=== PATIENT | male | born 1980 | race Caucasian/White ===

== ENCOUNTER 2021-08-21 19:33 | Emergency (ER) | payer OTHER, SELFPAY ==
[2021-08-21 19:34] VITALS: BP 216/100; PULSE 100; RESP 18; TEMP 36.6; O2SAT 99; BMI 61.0
--- NOTE | 2021-08-21 19:52 | EKG12_ITS ---
Test Reason : CP Blood Pressure : / mmHG Vent. Rate : 096 BPM Atrial Rate : 096 BPM P-R Int : 150 ms QRS Dur : 110 ms QT Int : 348 ms P-R-T Axes : 029 001 017 degrees QTc Int : 439 ms Normal sinus rhythm Septal infarct , age undetermined , cannot be excluded Abnormal ECG Confirmed by EMEKA SEYMOUR, JOHN ([id number]), medical transcription editor SHABANA CORTEZ ([id number]) on 08/23/2021 9:44:15 AM Referred By: RU Confirmed By:JOHN HENDRICKSON MD
--- NOTE | 2021-08-21 19:54 | ED.VIS.CHEST ---
HPI History of Present Illness Chief Complaint: Chest Pain Informant: patient Onset/Context/Timing Onset: Weeks (1.5) Activity at onset: gradual Timing: Continuous Quality: Positive for Tightness Location: Left Chest Worsened By: Nothing Relieved By: Nothing Associated Symptoms: Positive for Cough and Palpitations; Negative for Nausea, Vomiting, Diaphoresis, Dyspnea, Fever, Lightheadedness and Acid Reflux Narrative Narrative: Patient presents with chest pain that has been intermittent over the past week and a half but has become more constant today. Patient describes it as a burning and tightness. Patient states it is over his left upper chest. Patient denies any radiation of the pain. Patient states nothing makes it better nothing makes it worse. Patient states he noticed his heart rate was higher today than usual. Patient states his blood pressure was also elevated today. Patient admits to a recent cough. Patient denies any shortness of breath. Patient denies any nausea or vomiting. Patient denies any diaphoresis. CVD Risk Factors: Negative for Hypertension, Diabetes, Hypercholesterolemia, Family History 1' </=55 and Smoking PE Risk Factors: Negative for Recent Travel/Surgery, Recent Immobilization, Prior DVT or PE, Cancer and OCP + Smoking + >/=35 PFSH PFSH Medical History no medical history no medical history Allergy/AdvReac Type Severity Reaction Status Date / Time Penicillins Allergy PT UNSURE Verified 08/21/21 19:37 OF REACTION Surgical History Hx of tonsillectomy Social History Smoking Status: Light Smoker (<10/day) ROS ROS ED Constitutional Constitutional ED: Denies chills or fever(s) Eyes Eyes: Denies blurry vision or change in vision ENT ENT ED: Denies rhinorrhea or sore throat Cardiovascular Cardiovascular: Reports chest pain and palpitations Respiratory/Chest Respiratory/Chest: Reports cough; Denies dyspnea Gastrointestinal Gastrointestinal: Denies abdominal pain, nausea or vomiting Genitourinary Genitourinary ED: Denies dysuria or hematuria Musculoskeletal Musculoskeletal: Denies back pain or neck pain Integumentary Denies abscess or rash Neurologic Neurologic: Denies headache(s) or weakness Allergic/Immunologic Allergic/Immunologic ED: Denies mouth swelling or urticaria EXAM Physical Exam Const Vital Signs: 08/21/21 19:34 08/21/21 19:54 08/21/21 19:55 Temperature 97.9 F Temperature Source Temporal Pulse Rate 100 Respiratory Rate 18 Respiratory Effort Normal Non-Labored Blood Pressure 216/100 H Blood Pressure Mean 138 Pulse Ox 99 Oxygen Delivery Method Room Air Room Air 08/21/21 21:02 Temperature Temperature Source Pulse Rate 87 Respiratory Rate 14 Respiratory Effort Blood Pressure 126/74 H Blood Pressure Mean 91 Pulse Ox 94 Oxygen Delivery Method Room Air Positive well nourished, well developed and obese General Appearance ED: well developed Nutritional Appearance: obese HEENT normocephalic and atraumatic Eyes PERRL and EOMs intact bilaterally Neck supple and no JVD Chest Wall palpation of chest normal Resp normal respiratory effort and clear to auscultation bilaterally Effort and Inspection: Negative for respiratory distress Cardio regular rate, regular rhythm and no murmurs GI normal to inspection, nondistended, normoactive bowel sounds, soft to palpation, non-tender and non-distended Extremity normal to inspection General Extremety ED: Negative for edema or tenderness General Extremity: Negative for edema Neuro oriented x3, CN's II-XII intact bilaterally and no sensory deficits noted Sensorium / Orientation: awake and alert Motor Exam: strength 5/5 throughout Psych mental status grossly normal Heart Score History: Slightly/Non-Suspicious ECG: Normal Age: </= 45 years Risk Factors: No Risk Factors Score: 0 MDM MDM MDM Narrative Medical decision making narrative: EKG was obtained. On my interpretation, it showed a normal sinus rhythm with a rate of 96. GA interval, QRS interval, and QTc intervals were all normal. [place] was normal. There are no acute ST or T wave changes. Portable 1 view chest x-ray was obtained. On my interpretation, lung parnell are clear. There is normal cardiac silhouette. Bony thorax is normal. There is no acute process noted. Radiologist also interpreted the x-ray and agrees. CBC was within normal limits. Basic metabolic profile was normal. Initial high-sensitivity troponin was normal at 6. Patient's blood pressure improved without any medications and remained stable during his emergency department course. 2-hour repeat high-sensitivity troponin was obtained and was normal at 7. Patient was advised of his findings. Patient was instructed to monitor his blood pressures. Patient was instructed to follow-up with his primary care physician as scheduled. Patient and spouse understood and were agreeable with the plan. All questions were answered. Lab Data Attestation: I reviewed the patient's lab results. Labs: Laboratory Results - last 24 hr 08/21/21 08/21/21 08/21/21 19:50 19:50 21:53 WBC 10.1 RBC 5.12 Hgb 15.4 Hct 45.6 MCV 89.1 MCH 30.1 MCHC 33.8 RDW Std Deviation 42.4 RDW Coeff of Jimmy 12.9 Plt Count 262 MPV 9.3 Immature Gran % (Auto) 0.300 Neut % (Auto) 55.1 Lymph % (Auto) 33.1 [place] % (Auto) 9.8 Eos % (Auto) 1.0 Baso % (Auto) 0.7 Absolute Neuts (auto) 5.6 Absolute Lymphs (auto) 3.35 Nucleated RBC % 0 Sodium 140 Potassium 3.8 Chloride 106 Carbon Dioxide 28.0 Anion Gap 6 BUN 13 Creatinine 1.05 Estim Creat Clear Calc 102.65 Est GFR (MDRD) Af Amer 101 Est GFR (MDRD) Non-Af 83 BUN/Creatinine Ratio 12.4 Glucose 109 H Calcium 9.3 Troponin I High Sens 6 7 Radiography Diagnostic Testing: Clinical Impression(s) from Imaging Studies Chest X-Ray 08/21/21 20:00 IMPRESSION: There are no acute findings. Electronically Signed: Rodolfo Milian MD at 20:29 EST , Service support , EKG Initial EKG: Attestation: I personally reviewed and interpreted this EKG as follows: Interpretation: Sinus Rhythm (96) and No Acute Injury Pattern Prior EKG tracings: not available for review Discharge Plan Triage Chief Complaint: Chest Pain ED Provider: Sloan Nelson Dx/Rx/DC Orders Clinical Impression: Chest pain of uncertain etiology Instructions: ED Chest Pain, Uncertain Cause Primary Care Provider: Catracho Quinones Referrals: Catracho Quinones DO [Primary Care Provider] - Keep Esther appointment Disposition Disposition: Home, Self Care
[2021-08-21 19:57] LABS: Absolute Lymphocyte Count 3.35 X10^3/uL (0.83-4.51); Absolute Neutrophil Count 5.6 X10^3/uL (2.0-7.7); Basophil# 0.07 X10^3/uL; Basophil% 0.7 % (0-1); Hematocrit 45.6 % (40-54); Hemoglobin 15.4 g/dL (13.0-16.5); Lymphocyte # 3.35 X10^3/ul (0.83-4.51); Lymphocyte % 33.1 % (19-41); Mean Corp Hgb Conc 33.8 g/dL (32-36); Mean Corpuscular Hgb 30.1 pg (27.0-32.0); Mean Corpuscular Volume 89.1 fL (80-94); Mean Platelet Vol. 9.3 fl (6.2-12.0); Monocyte# 0.99 X10^3/uL; Monocyte% 9.8 % (0-10); NRBC Flagged by Analyzer 0 % (0-5); Neutrophil # 5.58 X10^3/uL (2.7-7.7); Neutrophil % 55.1 % (47-70); Platelet Count 262 K/mm3 (150-450); RBC Distribution Width CV 12.9 % (11.6-14.6); RBC Distribution Width SD 42.4 fl (35.1-43.9); Red Blood Count 5.12 M/mm3 (4.6-6.2); White Blood Count 10.1 K/mm3 (4.4-11.0)
[2021-08-21] MEDS: Aspirin 81 MG TAB.CHEW 324 MG PO (20:00)
--- NOTE | 2021-08-21 20:00 | RAD_ITS ---
STUDY: X-RAY CHEST REASON FOR EXAM: Male, 41 years old. CHEST PAIN chest pain TECHNIQUE: XR Chest 1 View COMPARISON: None FINDINGS: There is no demonstrated pleural abnormality. Normal size heart. Normal mediastinum and charline. Normal visualized pulmonary arteries. Normal visualized aortic arch and descending thoracic aorta. Normal visualized thoracic spine. Normal visualized ribs, clavicles, and shoulders. There is no demonstrated abnormality of the visualized soft tissue structures of the upper abdomen. RAD/Chest 1 View (Portable) IMPRESSION: There are no acute findings. Electronically Signed: Rodoflo Milian MD at 20:29 EST , Service support ,
--- NOTE | 2021-08-21 20:11 | ED.RN ---
PT. DECLINED NITRO AT THIS TIME. STATED I'M NOT REALLY HAVING CHEST PAIN RIGHT NOW.
[2021-08-21 20:14] LABS: Anion Gap 6 (5-15); BUN 13 mg/dL (7-18); BUN/Creat Ratio 12.4 RATIO (10-20); Calcium,Total 9.3 mg/dL (8.5-10.1); Chloride 106 mmol/L (98-107); Creatinine, Serum 1.05 mg/dL (0.70-1.30); EST Glomerular Filtration Rate 83 mL/min (>60); Est Glom Filt Rate - Afr Amer 101 mL/min (>60); Estimated Creatinine Clearance 102.65 ml/min; Glucose 109 mg/dL (74-106); Potassium 3.8 mmol/L (3.5-5.1); Sodium Level 140 mmol/L (136-145); Troponin-I HS 6 pg/mL (3.0-78.0)
[2021-08-21 21:02] VITALS: BP 126/74; PULSE 87; RESP 14; O2SAT 94
[2021-08-21 22:57] LABS: Troponin-I HS 7 pg/mL (3.0-78.0)
[2021-08-21 23:13] VITALS: BP 132/76
== END 2021-08-21 23:13 | disposition home or self-care (01) ==
PROVIDERS: Emergency Provider Emergency Medicine; PCP Preventive Medicine Occupational Medicine; Visit Provider Emergency Medicine
DX: R07.9 Chest pain, unspecified (principal); Z68.44 Body mass index [BMI] 60.0-69.9, adult; R00.2 Palpitations; R03.0 Elevated blood-pressure reading, without diagnosis of hypertension; E66.9 Obesity, unspecified; F17.200 Nicotine dependence, unspecified, uncomplicated
CPT/HCPCS: 71045; 80048; 84484; 85025; 87426; 93005; 99285; A4216